=== PATIENT | male | born 1950 | race Caucasian/White ===

== ENCOUNTER → 2017-11-23 | Outpatient (CLI) | payer BC ==
[2017-11-23] MEDS: REGADENOSON 0.4 MG/5 ML DISP.SYRIN. IV (08:30)
== END | disposition home or self-care (01) ==
LOC: NM 07:49
DX: Z01.810 Encounter for preprocedural cardiovascular examination (principal); I08.1 Rheumatic disorders of both mitral and tricuspid valves; R94.31 Abnormal electrocardiogram [ECG] [EKG]
CPT/HCPCS: 78452; 93017; 93306; 96374; 96375; 96376; A9500; J2785